=== PATIENT | female | born 1980 | race Caucasian/White ===

== ENCOUNTER 2019-06-16 14:39 | Emergency (ER) | payer MEDICARE, MEDICAID ==
[~2019-06-16] VITALS: Ht 170.2 cm; Wt 70.0 kg
[~2019-06-16 14:39] MED LIST: ALPR2TAB7 PO; DIAZ5TAB PO; DIPH50CA3 PO; DOCU-28 PO; DULO-31 PO; HYDR-4383 PO; IBUP-1986 PO; KETO10TA2 PO; LORA10TA7 PO; TIZA4CAP PO; TRAM50TA2 PO
[2019-06-16 14:47] VITALS: BP 109/73
[2019-06-16] MEDS ORDERED: venlafaxine 37.5mg tablet PO STA (15:30)
[2019-06-16] MEDS ORDERED: LORazepam 1 MG tablet PO ONE (15:30)
[2019-06-16] MEDS ORDERED: venlafaxine XR 75mg capsule (Q24H) PO STA (15:30)
[2019-06-16] MEDS ORDERED: albuterol 2.5 MG/3 ML nebule NEB ONE (15:35)
[2019-06-16] MEDS ORDERED: VENL150C2 PO (15:43)
--- NOTE | 2019-06-16 15:47 | NUR ---
CALLED LAB FOR PT MED NOT PRESENT IN ER OMNICELL PER PHARMACY THEY WILL SEND IT TO FAST TRACK.
== END 2019-06-16 16:09 | disposition home or self-care (01) ==
LOC: ER 14:40
DX: F41.9 Anxiety disorder, unspecified (principal); F19.939 Other psychoactive substance use, unspecified with withdrawal, unspecified; R06.4 Hyperventilation; R11.2 Nausea with vomiting, unspecified; R19.7 Diarrhea, unspecified; R42 Dizziness and giddiness; G89.29 Other chronic pain; M79.7 Fibromyalgia; F17.200 Nicotine dependence, unspecified, uncomplicated; F32.9 Major depressive disorder, single episode, unspecified; F12.90 Cannabis use, unspecified, uncomplicated; Z86.14 Personal history of Methicillin resistant Staphylococcus aureus infection; Z87.442 Personal history of urinary calculi; Z90.710 Acquired absence of both cervix and uterus; Z98.51 Tubal ligation status; Z79.899 Other long term (current) drug therapy
CPT/HCPCS: 94640; 94760; 99284

== ENCOUNTER 2019-06-30 21:22 | Emergency (ER) | payer MEDICARE, MEDICAID ==
[~2019-06-30] VITALS: Ht 170.2 cm; Wt 70.4 kg
[~2019-06-30 21:22] MED LIST changes: +VENL150C2 PO
[2019-06-30 21:24] VITALS: BP 156/104
[2019-06-30] MEDS ORDERED: HYDROcodone/acetaminophen 5mg/325mg tablet PO ONE (22:40)
== END 2019-06-30 22:57 | disposition home or self-care (01) ==
LOC: ER 21:22
DX: R07.81 Pleurodynia (principal); G89.29 Other chronic pain; F41.9 Anxiety disorder, unspecified; F32.9 Major depressive disorder, single episode, unspecified; F12.90 Cannabis use, unspecified, uncomplicated; Z86.14 Personal history of Methicillin resistant Staphylococcus aureus infection; Z87.442 Personal history of urinary calculi; Z90.710 Acquired absence of both cervix and uterus; Z98.51 Tubal ligation status; Z79.899 Other long term (current) drug therapy; W01.0XXA Fall on same level from slipping, tripping and stumbling without subsequent striking against object, initial encounter; Y93.89 Activity, other specified; Y92.89 Other specified places as the place of occurrence of the external cause; Y99.8 Other external cause status
CPT/HCPCS: 99282; 99283

== ENCOUNTER 2021-04-14 11:43 | Emergency (ER) | payer MEDICARE, MEDICAID ==
[~2021-04-14] VITALS: Ht 170.2 cm; Wt 63.6 kg
[2021-04-14 16:42] LABS: BASOPHILS # (AUTO) 0.1 X10'3 (0-0.2); BASOPHILS % (AUTO) 1.3 % (0-1); EOSINOPHILS # (AUTO) 0.1 X10'3 (0-0.9); EOSINOPHILS % (AUTO) 1.6 % (0-6); HEMATOCRIT 40.1 % (35.0-45.0); HEMOGLOBIN 13.4 g/dl (12.0-16.0); LYMPHOCYTES # (AUTO) 2.4 X10'3 (1.1-4.8); LYMPHOCYTES % (AUTO) 31.3 % (21-51); MEAN CORPUSCULAR HEMOGLOBIN 30.2 PG (27.0-31.0); MEAN CORPUSCULAR HGB CONC 33.4 g/dL (33.0-36.5); MEAN CORPUSCULAR VOLUME 90.6 FL (78-98); MEAN PLATELET VOLUME 8.6 FL (7.4-10.4); MONOCYTES # (AUTO) 0.6 X10'3 (0-0.9); MONOCYTES % (AUTO) 8.2 % (2-12); NEUTROPHILS # (AUTO) 4.4 X10'3 (1.8-7.7); NEUTROPHILS % (AUTO) 57.6 % (42-75); PLATELET COUNT 288 X10'3 (140-440); RED BLOOD COUNT 4.43 X10'6 (4.20-5.60); RED CELL DISTRIBUTION WIDTH 13.1 % (11.5-14.5); WHITE BLOOD COUNT 7.7 X10'3 (4.5-11.0)
[2021-04-14 16:54] LABS: D-DIMER 0.74 MG/L FEU (0-0.50)
[2021-04-14 17:00] LABS: ALANINE AMINOTRANSFERASE 15 U/L (12-78); ALBUMIN 3.6 G/DL (3.4-5.0); ALKALINE PHOSPHATASE 69 IU/L (46-116); ANION GAP 14 (8-16); ASPARTATE AMINO TRANSFERASE 12 U/L (10-37); BILIRUBIN,TOTAL 0.3 MG/DL (0.1-1.0); CHLORIDE 101 MMOL/L (99-107); CREATININE 0.71 MG/DL (0.40-0.90); GLUCOSE 93 MG/DL (70-104); POTASSIUM 3.2 MMOL/L (3.5-5.1); SODIUM 143 MMOL/L (135-145); TOTAL CARBON DIOXIDE 28.2 MMOL/L (24-32); TOTAL PROTEIN 7.1 G/DL (6.4-8.2); eGFR 90 ML/MIN
[2021-04-14 17:02] LABS: BLOOD UREA NITROGEN 5 MG/DL (7-18)
[2021-04-14] MEDS ORDERED: iohexol 350MG/ML 100ml bottle IV ONE (17:04)
[2021-04-14] MEDS ORDERED: normal saline 1000ML IV soln IVB ONE (17:05)
--- NOTE | 2021-04-14 17:25 | NUR ---
pt is 41 yo female c/o rt sided chest pain x3-4days s/p fall down 3-4 stairs, pt tripped and fell on left shoulder, left lateral ankle has abrasion healing well, chest pain is "sharp" 05/20, resp even and unlabored, skin p/w/d
--- NOTE | 2021-04-14 17:37 | NUR ---
pt to CT
[2021-04-14 18:10] VITALS: BP 108/66
--- NOTE | 2021-04-14 18:10 | NUR ---
PT IS RESTING QUIETLY ON [facility], WAITING FOR RESULTS OF CT
== END 2021-04-14 20:51 | disposition home or self-care (01) ==
LOC: ER 11:43
DX: R07.89 Other chest pain (principal); R05 Cough; F17.210 Nicotine dependence, cigarettes, uncomplicated; G89.29 Other chronic pain; M79.7 Fibromyalgia; F12.90 Cannabis use, unspecified, uncomplicated; Z86.19 Personal history of other infectious and parasitic diseases; Z86.14 Personal history of Methicillin resistant Staphylococcus aureus infection; Z79.899 Other long term (current) drug therapy; Z90.710 Acquired absence of both cervix and uterus; Z98.51 Tubal ligation status
CPT/HCPCS: 36415; 71275; 80053; 84484; 85025; 85379; 93005; 96360; 99285; J7030; Q9967

== ENCOUNTER 2022-07-20 16:43 | Emergency (ER) | payer MEDICARE, MEDICAID ==
[~2022-07-20] VITALS: Ht 170.2 cm; Wt 63.6 kg
[~2022-07-20 16:43] MED LIST changes: -DIPH50CA3 PO; +DIPH50CA40 PO; -VENL150C2 PO; +VENL150C4 PO
[2022-07-20 18:11] LABS: BASOPHILS # (AUTO) 0.2 X10'3 (0-0.2); EOSINOPHILS # (AUTO) 0.2 X10'3 (0-0.9); EOSINOPHILS % (AUTO) 1.9 % (0-6)
[2022-07-20 18:13] LABS: ALANINE AMINOTRANSFERASE 13 U/L (12-78); ALBUMIN/GLOBULIN RATIO 1.3 (1.1-1.5); ALKALINE PHOSPHATASE 80 IU/L (46-116); ANION GAP 11 (8-16); ASPARTATE AMINO TRANSFERASE 13 U/L (10-37); BASOPHILS % (AUTO) 1.9 % (0-1); BILIRUBIN,TOTAL 0.4 MG/DL (0.1-1.0); BLOOD UREA NITROGEN 5 MG/DL (7-18); BUN/CREATININE RATIO 6.7 (6.6-38.0); CALCIUM 8.8 MG/DL (8.5-10.1); CHLORIDE 103 MMOL/L (99-107); CREATININE 0.75 MG/DL (0.40-0.90); GLUCOSE 92 MG/DL (70-104); HEMATOCRIT 41.3 % (35.0-45.0); HEMOGLOBIN 13.8 g/dl (12.0-16.0); LYMPHOCYTES # (AUTO) 2.8 X10'3 (1.1-4.8); LYMPHOCYTES % (AUTO) 31.8 % (21-51); MEAN CORPUSCULAR HGB CONC 33.5 g/dL (33.0-36.5); MEAN CORPUSCULAR VOLUME 89.6 FL (78-98); MEAN PLATELET VOLUME 9.1 FL (7.4-10.4); MONOCYTES # (AUTO) 0.7 X10'3 (0-0.9); NEUTROPHILS # (AUTO) 4.9 X10'3 (1.8-7.7); NEUTROPHILS % (AUTO) 56.4 % (42-75); PLATELET COUNT 295 X10'3 (140-440); RED BLOOD COUNT 4.61 X10'6 (4.20-5.60); RED CELL DISTRIBUTION WIDTH 13.7 % (11.5-14.5); SODIUM 138 MMOL/L (135-145); TOTAL CARBON DIOXIDE 23.7 MMOL/L (24-32); TOTAL PROTEIN 7.2 G/DL (6.4-8.2); WHITE BLOOD COUNT 8.7 X10'3 (4.5-11.0); eGFR 84 ML/MIN
[2022-07-20] MEDS ORDERED: LORA-269 PO (18:49)
[2022-07-20 20:35] VITALS: BP 99/60
== END 2022-07-20 20:40 | disposition home or self-care (01) ==
LOC: ER 16:44
DX: R07.89 Other chest pain (principal); F41.9 Anxiety disorder, unspecified; M54.2 Cervicalgia; R42 Dizziness and giddiness; G89.29 Other chronic pain; F32.A Depression, unspecified; F17.200 Nicotine dependence, unspecified, uncomplicated; F12.90 Cannabis use, unspecified, uncomplicated; Z87.442 Personal history of urinary calculi; Z86.14 Personal history of Methicillin resistant Staphylococcus aureus infection; Z90.710 Acquired absence of both cervix and uterus; Z98.51 Tubal ligation status; Z79.899 Other long term (current) drug therapy
CPT/HCPCS: 36415; 71045; 80053; 83880; 84484; 85025; 93005; 99285

== ENCOUNTER 2022-09-27 04:08 | Emergency (ER) | payer MEDICARE, MEDICAID ==
[~2022-09-27] VITALS: Ht 170.2 cm; Wt 63.6 kg
[~2022-09-27 04:08] MED LIST changes: +LORA-269 PO
[2022-09-27] MEDS ORDERED: HYDROcodone/acetaminophen 10/325mg tab PO STA (04:53)
[2022-09-27 08:32] VITALS: BP 122/85
[2022-09-27] MEDS ORDERED: HYDR-3965 PO (09:13)
== END 2022-09-27 10:05 | disposition home or self-care (01) ==
LOC: ER 04:09
DX: S90.31XA Contusion of right foot, initial encounter (principal); G89.29 Other chronic pain; M54.9 Dorsalgia, unspecified; Z86.14 Personal history of Methicillin resistant Staphylococcus aureus infection; F41.9 Anxiety disorder, unspecified; F12.10 Cannabis abuse, uncomplicated; Z79.899 Other long term (current) drug therapy; X58.XXXA Exposure to other specified factors, initial encounter; Y93.89 Activity, other specified; Y92.89 Other specified places as the place of occurrence of the external cause; Y99.8 Other external cause status
CPT/HCPCS: 73630; 99283; L4360; A6449

== ENCOUNTER 2023-06-09 21:13 | Emergency (ER) | payer MEDICARE, MEDICAID ==
[~2023-06-09] VITALS: Ht 170.2 cm; Wt 66.3 kg
[2023-06-09 21:43] VITALS: BP 112/66; PULSE 89; RESP 18; TEMP 98.9; O2SAT 98
[2023-06-09] MEDS ORDERED: LIDOcaine 1% W/epiNEPHrine 1:100,000 20ml vial IJ ONE (22:25)
[2023-06-09] MEDS ORDERED: CEPH-585 PO (22:43)
== END 2023-06-09 23:05 | disposition home or self-care (01) ==
LOC: ER 21:14
DX: L02.414 Cutaneous abscess of left upper limb (principal); G89.29 Other chronic pain; M54.9 Dorsalgia, unspecified; F31.9 Bipolar disorder, unspecified; F12.10 Cannabis abuse, uncomplicated; Z86.14 Personal history of Methicillin resistant Staphylococcus aureus infection; Z90.49 Acquired absence of other specified parts of digestive tract; Z79.899 Other long term (current) drug therapy; Z79.1 Long term (current) use of non-steroidal anti-inflammatories (NSAID); Z79.2 Long term (current) use of antibiotics
CPT/HCPCS: 10060; 99283

== ENCOUNTER 2024-04-26 20:49 | Emergency (ER) | payer MEDICARE, MEDICAID ==
[~2024-04-26] VITALS: Ht 170.2 cm; Wt 72.7 kg
[~2024-04-26 20:49] MED LIST changes: +CEPH-585 PO; -VENL150C4 PO; +VENL150C5 PO
[2024-04-26 20:59] VITALS: BP 127/72; PULSE 85; RESP 17; TEMP 98.3; O2SAT 96
== END 2024-04-27 01:38 | disposition left against medical advice (07) ==
LOC: ER 20:50
DX: M79.641 Pain in right hand (principal); W01.0XXA Fall on same level from slipping, tripping and stumbling without subsequent striking against object, initial encounter; Y93.89 Activity, other specified; Y92.89 Other specified places as the place of occurrence of the external cause; Y99.8 Other external cause status; Z53.21 Procedure and treatment not carried out due to patient leaving prior to being seen by health care provider
CPT/HCPCS: 73130

== ENCOUNTER 2024-05-09 10:40 | Outpatient (CLI) | payer MEDICARE, MEDICAID | END 2024-05-09 23:59 | disposition home or self-care (01) | LOC: MRI 10:40 | PROVIDERS: ATTEND Pediatrics Sports Medicine | DX: M23.041 Cystic meniscus, anterior horn of lateral meniscus, right knee (principal); M23.321 Other meniscus derangements, posterior horn of medial meniscus, right knee; M71.21 Synovial cyst of popliteal space [Baker], right knee; R60.0 Localized edema; M94.261 Chondromalacia, right knee; M94.262 Chondromalacia, left knee; M25.562 Pain in left knee; M25.561 Pain in right knee | CPT/HCPCS: 73721 ==

== ENCOUNTER 2024-08-19 19:59 | Emergency (ER) | payer MEDICARE, MEDICAID ==
[~2024-08-19] VITALS: Ht 170.2 cm; Wt 83.8 kg
[~2024-08-19 19:59] MED LIST changes: -CEPH-585 PO
[2024-08-19] MEDS: HYDROcodone/acetaminophen 10/325mg tab PO ONE (20:19)
[2024-08-19 21:17] VITALS: BP 135/79; PULSE 74; RESP 16; TEMP 97.9; O2SAT 98
== END 2024-08-19 21:18 | disposition home or self-care (01) ==
LOC: ER 20:00
DX: S62.306A Unspecified fracture of fifth metacarpal bone, right hand, initial encounter for closed fracture (principal); F12.90 Cannabis use, unspecified, uncomplicated; G89.29 Other chronic pain; M54.9 Dorsalgia, unspecified; M79.7 Fibromyalgia; F41.9 Anxiety disorder, unspecified; F32.A Depression, unspecified; Z79.899 Other long term (current) drug therapy; Z79.1 Long term (current) use of non-steroidal anti-inflammatories (NSAID); Z87.442 Personal history of urinary calculi; Z90.710 Acquired absence of both cervix and uterus; Z98.51 Tubal ligation status; W01.0XXA Fall on same level from slipping, tripping and stumbling without subsequent striking against object, initial encounter; Y93.89 Activity, other specified; Y92.89 Other specified places as the place of occurrence of the external cause; Y99.8 Other external cause status
CPT/HCPCS: 29125; 73130; 99284; A6449